=== PATIENT | male | born 1960 | race Caucasian/White ===

== ENCOUNTER 2020-09-08 19:25 | Inpatient (IN) | payer OTHER, SELFPAY ==
[~2020-09-08] VITALS: Ht 172.7 cm; Wt 95.3 kg
[2020-09-08 20:02] VITALS: BP_SYST 133
[2020-09-08] MEDS ORDERED: AZITHROMYCIN 500 MG in NS 250 ML IV ONE (20:15)
[2020-09-08] MEDS ORDERED: cefTRIAXone 1 GM in D5W 50 ML IV ONE (20:15)
[2020-09-08] MEDS ORDERED: NACL 0.9% 1,000 ML IV ONE (20:15)
[2020-09-08] MEDS ORDERED: ALBUTEROL MDI INHALATION 8 GM INH INH ONE (20:15)
[2020-09-08] MEDS ORDERED: ACETAMINOPHEN 500 MG TABLET PO ONE (20:15)
[2020-09-08] MEDS ORDERED: AZITHROMYCIN 500 MG/VIAL (ZITHROMAX) IV ONE (20:30)
[2020-09-08] MEDS ORDERED: cefTRIAXone 1 GM VIAL ONE (20:30)
[2020-09-08 20:53] LABS: BASOPHILS % (AUTO) 0.3 % (0.0-2.0); EOSINOPHILS % (AUTO) 0.2 % (0.0-4.0); HEMATOCRIT 48.3 % (36-54); HEMOGLOBIN 16.4 g/dL (14.0-18.0); LYMPHOCYTES # (AUTO) 0.8 K/uL (1.0-5.5); LYMPHOCYTES % (AUTO) 13.1 % (20.5-51.5); MEAN CORPUSCULAR HEMOGLOBIN 31 pg (27-31); MEAN CORPUSCULAR HGB CONC 34 % (32-36); MEAN CORPUSCULAR VOLUME 91 fL (79.0-98.0); MONOCYTES # (AUTO) 0.5 K/uL (0.0-1.0); MONOCYTES % (AUTO) 8.3 % (1.7-9.3); NEUTROPHILS # (AUTO) 4.7 K/uL (1.8-7.7); NEUTROPHILS % (AUTO) 78.1 % (40.0-70.0); PLATELET COUNT (AUTO) 284 K/uL (130-430); RED BLOOD CELL COUNT(AUTO) 5.32 MIL/uL (4.2-6.2); RED CELL DISTRIBUTION WIDTH 13.2 % (9.0-15.0)
[2020-09-09] MEDS ORDERED: NALOXONE HCL 0.4 MG/ML AMP (NARCAN) IVP PRN
[2020-09-09] MEDS ORDERED: MORPHINE 4 MG/ML INJ. SYRINGE IVP PRN
[2020-09-09] MEDS ORDERED: HYDROcodone/ACETAMIN 5-325 MG TAB (NORCO/ VICODIN) PO PRN
[2020-09-09 00:42] LABS: CALCIUM 8.3 mg/dL (8.4-11.0); CREATININE 0.95 mg/dL (0.55-1.30); POTASSIUM 4.5 mmol/L (3.5-5.1)
[2020-09-09 00:48] LABS: ALBUMIN 2.8 g/dL (3.4-4.8); TOTAL BILIRUBIN 0.3 mg/dL (0.0-1.0)
[2020-09-09 00:58] LABS: FIBRINOGEN 584 mg/dL (200-400)
[2020-09-09 00:59] LABS: C-REACTIVE PROTEIN QUANT 7.3 mg/dL (0-0.5)
[2020-09-09] MEDS ORDERED: LISI-600 PO (05:05)
[2020-09-09] MEDS ORDERED: LIP20 PO (05:05)
[2020-09-09] MEDS ORDERED: LEVO750T45 PO (05:05)
[2020-09-09] MEDS ORDERED: ONDANSETRON HCL 4 MG/2 ML VIAL IVP PRN (09:00)
[2020-09-09 09:14] LABS: BASOPHILS % (AUTO) 0.2 % (0.0-2.0); EOSINOPHILS % (AUTO) 0.2 % (0.0-4.0); HEMATOCRIT 45.7 % (36-54); HEMOGLOBIN 15.4 g/dL (14.0-18.0); LYMPHOCYTES # (AUTO) 0.7 K/uL (1.0-5.5); LYMPHOCYTES % (AUTO) 14.1 % (20.5-51.5); MEAN CORPUSCULAR HEMOGLOBIN 31 pg (27-31); MEAN CORPUSCULAR HGB CONC 34 % (32-36); MEAN CORPUSCULAR VOLUME 91 fL (79.0-98.0); MONOCYTES # (AUTO) 0.5 K/uL (0.0-1.0); MONOCYTES % (AUTO) 10.4 % (1.7-9.3); NEUTROPHILS # (AUTO) 3.8 K/uL (1.8-7.7); NEUTROPHILS % (AUTO) 75.1 % (40.0-70.0); PLATELET COUNT (AUTO) 267 K/uL (130-430); RED BLOOD CELL COUNT(AUTO) 5.02 MIL/uL (4.2-6.2); RED CELL DISTRIBUTION WIDTH 13.2 % (9.0-15.0)
[2020-09-09] MEDS: THIAMINE HCL 100 MG TABLET PO SCH (13:18)
[2020-09-09] MEDS: ASCORBIC ACID 500 MG TABLET PO SCH ×2 (13:18→21:00)
[2020-09-09] MEDS: CHOLECALCIFEROL (VITAMIN D3) 5,000 UNIT TABLET PO SCH (13:18)
[2020-09-09] MEDS: FAMOTIDINE PF 20 MG/2 ML VIAL IVP SCH ×2 (13:19→21:00)
[2020-09-09] MEDS: DEXAMETHASONE SOD PHOSPHATE 10 MG/ML VIAL IVP SCH (13:19)
[2020-09-09] MEDS ORDERED: AZITHROMYCIN 500 MG in NS 250 ML IV SCH (20:30)
[2020-09-09] MEDS ORDERED: cefTRIAXone 2 GM VIAL ONE (20:46)
[2020-09-09] MEDS ORDERED: AZITHROMYCIN 500 MG/VIAL (ZITHROMAX) IV ONE (20:46)
[2020-09-09] MEDS ORDERED: ENOXAPARIN SODIUM 40 MG/0.4 ML SYRINGE ONE (20:47)
[2020-09-09] MEDS ORDERED: FAMOTIDINE PF 20 MG/2 ML VIAL ONE (20:47)
[2020-09-09] MEDS ORDERED: ENOXAPARIN SODIUM 40 MG/0.4 ML SYRINGE SUBCUT SCH (21:00)
[2020-09-09] MEDS ORDERED: HYDROcodone/ACETAMIN 5-325 MG TAB (NORCO/ VICODIN) ONE (22:08)
[2020-09-10 04:14] VITALS: BP_SYST 111
[2020-09-10] MEDS ORDERED: ATORVASTATIN 10 MG TABLET PO SCH (09:00)
[2020-09-10] MEDS ORDERED: lisinopriL 5 MG TABLET PO SCH (09:00)
[2020-09-10 09:04] LABS: BASOPHILS % (AUTO) 0.1 % (0.0-2.0); HEMATOCRIT 42.1 % (36-54); HEMOGLOBIN 14.1 g/dL (14.0-18.0); LYMPHOCYTES # (AUTO) 0.6 K/uL (1.0-5.5); LYMPHOCYTES % (AUTO) 16.1 % (20.5-51.5); MEAN CORPUSCULAR HEMOGLOBIN 31 pg (27-31); MEAN CORPUSCULAR HGB CONC 34 % (32-36); MEAN CORPUSCULAR VOLUME 91 fL (79.0-98.0); MONOCYTES # (AUTO) 0.4 K/uL (0.0-1.0); MONOCYTES % (AUTO) 11.1 % (1.7-9.3); NEUTROPHILS # (AUTO) 2.8 K/uL (1.8-7.7); NEUTROPHILS % (AUTO) 72.7 % (40.0-70.0); PLATELET COUNT (AUTO) 296 K/uL (130-430); RED BLOOD CELL COUNT(AUTO) 4.62 MIL/uL (4.2-6.2); RED CELL DISTRIBUTION WIDTH 13.1 % (9.0-15.0); WHITE BLOOD COUNT (AUTO) 3.8 K/uL (4.8-10.8)
[2020-09-10] MEDS: FAMOTIDINE PF 20 MG/2 ML VIAL IVP SCH (09:47)
[2020-09-10 09:48] LABS: ALBUMIN 2.7 g/dL (3.4-4.8); CALCIUM 9.3 mg/dL (8.4-11.0); CREATININE 0.75 mg/dL (0.55-1.30); POTASSIUM 4.3 mmol/L (3.5-5.1); TOTAL BILIRUBIN 0.2 mg/dL (0.0-1.0)
[2020-09-10] MEDS: THIAMINE HCL 100 MG TABLET PO SCH (09:50)
[2020-09-10] MEDS: ASCORBIC ACID 500 MG TABLET PO SCH (09:50)
[2020-09-10] MEDS: CHOLECALCIFEROL (VITAMIN D3) 5,000 UNIT TABLET PO SCH (09:50)
[2020-09-10] MEDS: DEXAMETHASONE SOD PHOSPHATE 10 MG/ML VIAL IVP SCH (13:43)
== END 2020-09-10 22:50 | disposition left against medical advice (07) | DRG 177 ==
LOC: SED 19:25 → STU 21:49
PROVIDERS: ADMIT Internal Medicine Hospice and Palliative Medicine; ATTEND Internal Medicine Hospice and Palliative Medicine
DX: U07.1 COVID-19 (principal); J12.89 Other viral pneumonia; J96.01 Acute respiratory failure with hypoxia; I10 Essential (primary) hypertension; E78.5 Hyperlipidemia, unspecified; Z53.29 Procedure and treatment not carried out because of patient's decision for other reasons; Z88.8 Allergy status to other drugs, medicaments and biological substances
CPT/HCPCS: 36415; 36600; 71045; 80053; 82728; 82803-TC; 83605; 83615-TC; 83880; 84484; 85025; 85379; 85384-TC; 86140; 87040-TC; 93005; 96365; 96368; 99291; G0378; J0456; J0696; J1100; J1650; J3490; J7050; J7060; U0003

== ENCOUNTER 2020-09-11 10:21 | Emergency (ER) | payer OTHER, SELFPAY ==
[~2020-09-11] VITALS: Ht 172.7 cm; Wt 113.4 kg
[2020-09-11 10:21] VITALS: BP_SYST 137
[~2020-09-11 10:21] MED LIST: LEVO750T45 PO; LIP20 PO; LISI-600 PO
[2020-09-11 11:53] LABS: BASOPHILS % (AUTO) 0.4 % (0.0-2.0); HEMATOCRIT 46.1 % (36-54); HEMOGLOBIN 15.5 g/dL (14.0-18.0); LYMPHOCYTES # (AUTO) 0.9 K/uL (1.0-5.5); LYMPHOCYTES % (AUTO) 11.7 % (20.5-51.5); MEAN CORPUSCULAR HEMOGLOBIN 31 pg (27-31); MEAN CORPUSCULAR HGB CONC 34 % (32-36); MEAN CORPUSCULAR VOLUME 91 fL (79.0-98.0); MONOCYTES # (AUTO) 0.7 K/uL (0.0-1.0); MONOCYTES % (AUTO) 9.6 % (1.7-9.3); NEUTROPHILS # (AUTO) 5.8 K/uL (1.8-7.7); NEUTROPHILS % (AUTO) 78.3 % (40.0-70.0); PLATELET COUNT (AUTO) 385 K/uL (130-430); RED BLOOD CELL COUNT(AUTO) 5.07 MIL/uL (4.2-6.2); RED CELL DISTRIBUTION WIDTH 13.5 % (9.0-15.0); WHITE BLOOD COUNT (AUTO) 7.4 K/uL (4.8-10.8)
[2020-09-11 12:07] LABS: ANION GAP 10 (5-15); CALCIUM 9.5 mg/dL (8.4-11.0); CHLORIDE 105 mmol/L (98-107); CREATININE 0.95 mg/dL (0.55-1.30); GLUCOSE 95 mg/dL (70-99); POTASSIUM 3.7 mmol/L (3.5-5.1); SODIUM SERUM 142 mmol/L (136-145); UREA NITROGEN, BLOOD 14 mg/dL (8-21)
[2020-09-11 12:11] LABS: GFR AFRICAN AMERICAN 104 mL/min (>90)
[2020-09-11 12:19] LABS: ALANINE AMINOTRANSFERASE 81 U/L (12-78); ALBUMIN 3.2 g/dL (3.4-4.8); ASPARTATE AMINOTRANSFERASE 46 U/L (10-37); BILIRUBIN,DIRECT 0.2 mg/dL (0.0-0.3); LIPASE 187 U/L (73-393); TOTAL BILIRUBIN 0.4 mg/dL (0.0-1.0)
== END 2020-09-11 12:05 | disposition home or self-care (01) ==
LOC: SED 10:21
DX: U07.1 COVID-19 (principal); J18.9 Pneumonia, unspecified organism; I10 Essential (primary) hypertension
CPT/HCPCS: 36415; 71045; 80048; 80076; 83690-TC; 83880; 84484; 85025; 93005; 99285